=== PATIENT | female | born 1965 | race African-American/Black ===

== ENCOUNTER 2020-04-15 17:11 | Emergency (ER) | payer OTHER, SELFPAY ==
--- NOTE | ~2020-04-15 | XR_ITS ---
EXAMINATION: XR chest 2V, XR thoracic spine 2V DATE: 04/15/2020 18:15 INDICATION: Left sided chest and upper back pain TECHNIQUE: 1. PA and lateral views of the chest were obtained. 2. AP, lateral and lateral swimmer's views of the thoracic spine were obtained. COMPARISON: Chest radiograph dated 05/17/2015 FINDINGS: Chest: The lungs remain clear with no focal airspace opacities, pulmonary edema, pleural effusion or pneumot horax. The cardiomediastinal silhouette is normal. Thoracic spine: Alignment is normal. Chronic mild anterior wedging of T7. Remaining vertebral body heights are normal . Disc heights are normal. There are bridging osteophytes at multiple levels in the spine, consistent with diffuse idiopathic skeletal hyperostosis (DISH). IMPRESSION: 1. No acute cardiopulmonary disease. 2. Chronic mild anterior wedging of T7. No acute osseous abnormality. Reviewed, dictated and finalized at location A. IMPRESSION: 1. No acute cardiopulmonary disease. 2. Chronic mild anterior wedging of T7. No acute osseous abnormality.
[2020-04-15 17:18] VITALS: BP 172/107; PULSE 115; RESP 20; TEMP 36.8; O2SAT 98
--- NOTE | 2020-04-15 17:31 | ECG_ITS ---
Measurements Intervals [place] Rate: 88 P: 46 NM: 218 QRS: -1 QRSD: 78 T: 41 QT: 359 QTc: 435 Interpretive Statements SINUS RHYTHM WITH FIRST DEGREE AV BLOCK ABNORMAL ECG Electronically Signed On 04-16-2020 6:48:34 CDT by Antwon Rdz D.O.
--- NOTE | 2020-04-15 17:37 | ED.BACK ---
HPI - Back Pain/Injury General Chief Complaint: Back Pain/Injury Stated Complaint: back pain Time Seen by Provider: 04/15/20 17:20 Source: RN notes reviewed History of Present Illness HPI Narrative: Patient presents emergency department from home for back pain. Patient states she has pain in her left upper back to goes into her left posterior shoulder. States that pain is been present over the past several months but worse over the past several days. She denies any known trauma or injury. States that time it does make her feel short of breath because she feels that she cannot take a deep breath secondary to the pain. Patient denies any fevers or chills numbness or tingling in the extremities chest pain abdominal pain or any other symptoms. States she is taken no pain medication for the symptoms. States she does have a history of similar symptoms approximately 5 years ago and that it had improved at that time then reoccurred 2 months ago Related Data Allergies Allergy/AdvReac Type Severity Reaction Status Date / Time No Known Allergies Allergy Verified 04/15/20 17:19 Review of Systems Review of Systems: Narrative: Gen.: Denies fevers or chills Eyes: Denies eye pain or visual change ENT: Denies congestion Respiratory: Denies shortness of breath or cough CV: Denies chest pain or palpitations GI: Denies abdominal pain nausea, emesis or diarrhea Musculoskeletal: See HPI Neuro: Denies numbness, tingling, weakness or focal weakness Skin: Denies rash Except as documented, all other systems reviewed and negative [facility] Past Medical History Medical History (Updated 04/15/20 @ 18:33 by aCllum Bobby DO) Patient denies significant medical history Social History Social History (Updated 04/15/20 @ 17:38 by Callum Bobby DO) Smoking status: Never smoker Exam Narrative: Exam Narrative: APPEARANCE: No acute distress, nontoxic, resting in bed EYES: EOMI HEENT: Normocephalic, atraumatic, OMM RESPIRATORY: No respiratory distress Clear to auscultation bilaterally with no rhonchi wheezing or rales. CARDIOVASCULAR: Regular rate and rhythm without murmurs rubs or gallops. ABDOMINAL: Soft, nontender, nondistended, no rebound or guarding MUSCULOSKELETAl: Moves all extremities. No clubbing, cyanosis or edema. Back: No midline thoracic or lumbar tenderness palpation, tender palpation over left paravertebral muscles T2-T6 with tenderness to the left trapezius pain increased with flexion abduction of the left shoulder greater than 90 degrees NEURO: Awake and alert. Following commands, speech normal, no focal deficits SKIN:: Warm, dry. No rashes lesions or abrasions PSYCHIATRIC: Normal affect/mood, Course Course Emergency Course: Reviewed old records Patient states pain is improved with Toradol Discussed with patient results of workup and diagnosis. Discussed need for follow-up with primary care, proper use of medication, and reasons to return to the emergency department. Patient understands and agrees to current treatment plan Vital Signs Vital signs: Vital Signs Temperature 98.2 F 04/15/20 17:18 Pulse Rate 115 H 04/15/20 17:18 Respiratory Rate 20 04/15/20 17:18 Blood Pressure 172/107 H 04/15/20 17:18 Pulse Oximetry 98 04/15/20 17:18 Temperature 98.9 F 04/15/20 18:28 Pulse Rate 81 04/15/20 18:28 Respiratory Rate 16 04/15/20 18:28 Blood Pressure 148/82 H 04/15/20 18:28 Pulse Oximetry 100 04/15/20 18:28 MDM - Back Pain/Injury Lab Data Result diagrams: 04/15/20 17:43 04/15/20 17:43 Labs: Lab Results 04/15/20 04/15/20 04/15/20 Range/Units 17:43 17:43 17:43 WBC 6.7 (4.5-10.0) K/mm3 RBC 4.59 (4.2-5.4) M/mm3 Hgb 13.0 (12.0-15.0) g/dL Hct 40.1 (37.0-47.0) % MCV 87.4 (80-100) fl MCH 28.3 (26-34) pg MCHC 32.4 (32-36) g/dl RDW 14.9 H (11.5-14.5) % Plt Count 229 (150-375) k/mm3 MPV 11.2 H (7.4-10.4) fl Imm
[2020-04-15 17:49] LABS: Basophils Percent Auto 0.4 % (0.2-1.2); Eosinophils Absolute Auto 0.1 K/mm3 (0-0.3); Eosinophils Percent Auto 2.1 % (0-4.4); Hematocrit 40.1 % (37.0-47.0); Immature Granulocyte Absolute 0.01 K/mm3 (0.00-0.031); Immature Granulocyte Percent A 0.1 % (0-0.5); Lymphocytes Absolute Auto 2.05 K/mm3 (0.9-3.2); Lymphocytes Percent Auto 30.5 % (18.3-44.2); Mean Corpuscular HGB Conc 32.4 g/dl (32-36); Mean Corpuscular Hemoglobin 28.3 pg (26-34); Mean Corpuscular Volume 87.4 fl (80-100); Mean Platelet Volume 11.2 fl (7.4-10.4); Monocytes Absolute Auto 0.5 K/mm3 (0.1-0.6); Neutrophils Percent Auto 59.9 % (45.5-73.1); Platelet Count Result 229 k/mm3 (150-375); Red Blood Count 4.59 M/mm3 (4.2-5.4); Red Cell Distribution Width 14.9 % (11.5-14.5); White Blood Count 6.7 K/mm3 (4.5-10.0)
[2020-04-15] MEDS: KETOROLAC 30 MG/ML VIAL (*BKC) IV PUSH (17:50)
[2020-04-15 17:59] LABS: Prothrombin Time 12.8 Seconds (11.1-14.7)
[2020-04-15 18:00] LABS: Partial Thromboplastin Time 22.2 SECONDS (22.3-36.8)
[2020-04-15 18:01] LABS: Blood Urea Nitrogen 11 mg/dL (7-17); Calcium 9.2 mg/dL (8.4-10.2); Carbon Dioxide 28 mmol/L (22-30); Chloride 105 mmol/L (98-107); Estimated Glomerular Filt Rate > 60; Glucose 115 mg/dL (65-105); Potassium 3.4 mmol/L (3.4-5.0); Sodium 139 mmol/L (137-145)
[2020-04-15 18:13] LABS: Troponin I < 0.012 ng/mL (0.000-0.034)
[2020-04-15 18:28] VITALS: BP 148/82; PULSE 81; RESP 16; TEMP 37.2; O2SAT 100
[2020-04-15 18:41] VITALS: BP 145/81; PULSE 87; RESP 19; O2SAT 96
== END 2020-04-15 18:42 | disposition home or self-care (01) ==
PROVIDERS: Emergency Provider Emergency Medicine; PCP Internal Medicine
DX: M54.6 Pain in thoracic spine (principal); I44.0 Atrioventricular block, first degree
CPT/HCPCS: 36415; 71046; 72070; 80048; 84484; 85025; 85610; 85730; 93005; 96374; 99284; J1885

== ENCOUNTER 2022-03-09 18:49 | Emergency (ER) | payer OTHER, SELFPAY ==
--- NOTE | 2022-03-09 18:53 | ED.EYEPROB ---
HPI - Eye Problem General Chief complaint: Eye Problems Stated complaint: EYE SCRATCH/REDNESS Time Seen by Provider: 03/09/22 18:54 Source: patient, family and RN notes reviewed History of Present Illness HPI Narrative: Patient is a 56-year-old female who presents the urgent care with complaints of right eye swelling, pain and itchiness. Patient states that she was rubbing it consistently on Sunday and developed the redness and swelling over the last couple days. Patient denies of any vision changes. Denies of any fever, nausea or vomiting. Patient states that she has washed the eye out several times without much relief. No other acute complaints. Denies of any trauma to the eye. No acute distress noted. Patient aware of the plan of care. Some parts of this dictation were generated by voice recognition software and may contain typographical and/or grammatical inaccuracies. Related Data Allergies Allergy/AdvReac Type Severity Reaction Status Date / Time No Known Allergies Allergy Verified 03/09/22 18:55 Review of Systems Review of Systems: CONSTITUTIONAL: Denies fever, chills, or sweats. EYES: Reports of redness, itchiness and pain to the right eye ENT: Denies rhinorrhea, congestion, sore throat, or otalgia. CARDIOVASCULAR: Denies chest pain, palpitations, or edema. RESPIRATORY: Denies cough or dyspnea. GASTROINTESTINAL: Denies abdominal pain, nausea, vomiting, or diarrhea. GENITOURINARY: Denies dysuria or hematuria. SKIN: Denies rash or itching. MUSCULOSKELETAL: Denies back pain, joint pain, or myalgia. NEUROLOGIC: Denies headache, numbness, or weakness. All other systems reviewed are negative, except as documented in HPI. PMFSH Past Medical History Medical History (Updated 03/09/22 @ 19:22 by ZHANG Mchugh) Patient denies significant medical history Social History Social History (Updated 04/15/20 @ 17:38 by Callum Bobby DO) Smoking status: Never smoker Comments At the time of my signature, I reviewed and agree with the nursing past medical, surgical, social, and family history. There is no relevant family history pertinent to the patient complaint. Exam Narrative: GENERAL: This is a well-nourished, well-developed patient, in no apparent distress. HEAD: normocephalic, atraumatic. EYES: PERRL. Sclera clear/white. Vision is grossly intact. Right external intercanthus lower lid hordeolum. Periorbital cellulitis to right upper eyelid with mild surrounding erythema and moderate edema. Small abrasion to the inner canthus of the right upper eyelid with scabbing. EARS: External ears normal NOSE: External nose normal with no obvious nasal discharge, nares without redness, no rhinorrhea. THROAT: Mucous membranes moist NECK: Neck supple CARDIOVASCULAR: Regular rate and rhythm without murmurs, gallops, or rubs. RESPIRATORY: Clear to auscultation. Breath sounds equal bilaterally. No wheezes, rales, or rhonchi. SKIN: warm, intact with no suspicious lesions or rash, good texture and turgor. NEURO: awake, alert, and oriented to person, place and time. There were no obvious focal neurologic abnormalities. EXTREMITIES: No clubbing, cyanosis, or edema. Course Course Level of Care: Express Care Visit Vital Signs Vital signs: Vital Signs Temperature 97.6 F 03/09/22 18:54 Pulse Rate 74 03/09/22 18:54 Respiratory Rate 16 03/09/22 18:54 Blood Pressure 159/86 H 03/09/22 18:54 Pulse Oximetry 100 03/09/22 18:54 Temperature 97.6 F 03/09/22 18:54 Pulse Rate 74 03/09/22 18:54 Respiratory Rate 16 03/09/22 18:54 Blood Pressure 159/86 H 03/09/22 18:54 Pulse Oximetry 100 03/09/22 18:54 Reviewed-patient is informed that they may have pre-hypertension or hypertension based on a blood pressure reading in the department. I recommend the patient call the primary care provider listed on their discharge instructions or a physician of their choice this week to arrange follow-up for further
[2022-03-09 18:54] VITALS: BP 159/86; PULSE 74; RESP 16; TEMP 36.4; O2SAT 100
== END 2022-03-09 19:27 | disposition home or self-care (01) ==
PROVIDERS: Emergency Provider Nurse Practitioner Family; PCP Internal Medicine
DX: L03.213 Periorbital cellulitis (principal); H00.012 Hordeolum externum right lower eyelid
CPT/HCPCS: 99213; G0463